=== PATIENT | male | born 1975 | race Caucasian/White ===

== ENCOUNTER 2021-06-25 18:54 | Emergency (ER) | payer OTHER ==
[2021-06-25 20:02] LABS: HEMOGLOBIN 13.7 gm/dl (14.0-17.5); RED BLOOD COUNT 4.96 M/UL (4.20-5.50); WHITE BLOOD COUNT 6.7 K/UL (4.5-11.0)
[2021-06-25 20:24] LABS: BUN/CREATININE RATIO 20 (0-10)
== END 2021-06-26 00:53 | disposition home or self-care (01) ==
LOC: ER1 18:54
PROVIDERS: Family Medicine
DX: S01.01XA Laceration without foreign body of scalp, initial encounter (principal); S13.4XXA Sprain of ligaments of cervical spine, initial encounter; I25.10 Atherosclerotic heart disease of native coronary artery without angina pectoris; I10 Essential (primary) hypertension; W19.XXXA Unspecified fall, initial encounter
CPT/HCPCS: 12002; 70450; 71045; 72125; 80053; 82550; 82553; 83874; 84484; 85025; 93005; 99284; 99285